=== PATIENT | male | born 1970 | race Caucasian/White ===

== ENCOUNTER → 2017-03-14 08:34 | Outpatient (CLI) | payer BC ==
[2017-03-14 09:02] LABS: BASOPHILS 0.3 % (0-2); EOSINOPHILS 5.2 % (0-7); HEMATOCRIT 42.8 % (42.0-54.0); HEMOGLOBIN 14.3 g/dL (13.5-17.5); IMMATURE GRANULOCYTES 0.3 % (0-5); LYMPHOCYTES 16.8 % (15-50); MCH 30.4 pg (26.0-34.0); MCHC 33.4 g/dL (31.0-37.0); MCV 90.9 fL (80.0-100.0); MEAN PLATELET VOLUME 9.7 fL (7.4-10.4); MONOCYTES 8.1 % (2-11); NEUTROPHILS 69.3 % (40-80); PLATELET COUNT 238 10x3/uL (130-400); RBC 4.71 10x6/uL (4.20-6.10); RDW 13.2 % (11.5-14.5); WBC 6.9 10x3/uL (4.8-10.8)
[2017-03-14 09:25] LABS: ALBUMIN 3.6 g/dL (3.4-5.0); ANION GAP 11.1 mmol/L (8-16); BILIRUBIN - TOTAL 0.51 mg/dL (0.2-1.3); CALCIUM 9.3 mg/dL (8.5-10.1); CARBON DIOXIDE 28.5 mmol/L (21.0-32.0); CHOL - HDL RATIO 7.2 ratio (2.3-4.9); CREATININE - SERUM 1.3 mg/dL (0.6-1.3); LDL-HDL RATIO 4.3 ratio (1.5-3.5); POTASSIUM - SERUM 3.6 mmol/L (3.5-5.1); PROTEIN - SERUM 7.2 g/dL (6.4-8.2); THYROID STIMULATING HORMONE 1.04 uIU/mL (0.36-3.74)
== END | disposition home or self-care (01) ==
LOC: D.LAB 08:34
PROVIDERS: Family Medicine
DX: Z00.01 Encounter for general adult medical examination with abnormal findings (principal); E78.5 Hyperlipidemia, unspecified; I10 Essential (primary) hypertension

== ENCOUNTER 2018-12-04 02:49 | Emergency (ER) | payer BC ==
[~2018-12-04] VITALS: Ht 182.9 cm; Wt 115.9 kg
[2018-12-04 02:53] VITALS: Ht 182.9 cm; Wt 115.9 kg
[2018-12-04] MEDS ORDERED: HYDROCODON-ACE1 EAC7 PO (02:55)
[2018-12-04] MEDS ORDERED: [UNRECOGNIZED DRUG - OTHER] (02:56)
[2018-12-04] MEDS ORDERED: ZOLOFT25 MG PO (02:56)
[2018-12-04] MEDS ORDERED: COZAAR100 MG PO (02:57)
[2018-12-04] MEDS ORDERED: NORVASC10 MG PO (02:57)
[2018-12-04] MEDS ORDERED: HYDROCHLOROTHIA25 MG PO (02:57)
[2018-12-04] MEDS ORDERED: LOMOTIL 2.5-0.1 EAC1 PO (03:11)
[2018-12-04] MEDS ORDERED: ZOFRAN ODT4 MG/UDTAB PO (03:11)
[2018-12-04 06:01] VITALS: BP 130/80
== END 2018-12-04 06:00 | disposition home or self-care (01) ==
LOC: D.ER 02:49
DX: R11.10 Vomiting, unspecified (principal); R19.7 Diarrhea, unspecified; R10.9 Unspecified abdominal pain

== ENCOUNTER 2020-01-27 12:50 | Inpatient (IN) | payer BC ==
[~2020-01-27] VITALS: Ht 182.9 cm; Wt 111.1 kg
[~2020-01-27 12:50] MED LIST: COZAAR100 MG PO; HYDROCHLOROTHIA25 MG PO; HYDROCODON-ACE1 EAC7 PO; LOMOTIL 2.5-0.1 EAC1 PO; NORVASC10 MG PO; ZOFRAN ODT4 MG/UDTAB PO; ZOLOFT25 MG PO; [UNRECOGNIZED DRUG - OTHER]
[2020-01-27] MEDS ORDERED: IRON (13:13)
[2020-01-27] MEDS ORDERED: FISHOIL (13:13)
[2020-01-27] MEDS ORDERED: MULTIVITAMIN (13:13)
[2020-01-27 13:43] LABS: BASOPHILS 0.2 % (0-2); EOSINOPHILS 0.2 % (0-7); HEMATOCRIT 40.1 % (42.0-54.0); HEMOGLOBIN 13.2 g/dL (13.5-17.5); IMMATURE GRANULOCYTES 0.2 % (0-5); LYMPHOCYTES 22.9 % (15-50); MCH 29.7 pg (26.0-34.0); MCHC 32.9 g/dL (31.0-37.0); MCV 90.1 fL (80.0-100.0); MEAN PLATELET VOLUME 9.3 fL (7.4-10.4); MONOCYTES 6.8 % (2-11); NEUTROPHILS 69.7 % (40-80); PLATELET COUNT 185 10x3/uL (130-400); RBC 4.45 10x6/uL (4.20-6.10); RDW 13.6 % (11.5-14.5); WBC 4.8 10x3/uL (4.8-10.8)
[2020-01-27 13:58] LABS: CALC OSMOLALITY 287 mosm/kg (275-300); CALCIUM 8.6 mg/dL (8.5-10.1); CARBON DIOXIDE 23.7 mmol/L (21.0-32.0); CHLORIDE - SERUM 108 mmol/L (98-107); CREATININE - SERUM 1.2 mg/dL (0.6-1.3); GLUCOSE 89 mg/dL (74-106); SODIUM 144 mmol/L (136-145); UREA NITROGEN 18 mg/dL (7-18); eGFR NON AFRICAN AMERICAN 67 mL/min (90-120)
[2020-01-27 14:07] LABS: APTT 30.4 SECONDS (22.8-39.4); INR 0.97 (0.85-1.17); PROTIME 12.8 SECONDS (11.6-15.0)
[2020-01-27 14:11] LABS: ALBUMIN 3.2 g/dL (3.4-5.0); ALKALINE PHOSPHATASE 45 U/L (30-120); ALT (SGPT) 54 U/L (10-68); BILIRUBIN - TOTAL 0.24 mg/dL (0.2-1.3); CREATINE KINASE 165 UL (21-232); PRO BNP 414 pg/mL (0-125); PROTEIN - SERUM 6.9 g/dL (6.4-8.2); TROPONIN-I 0.026 ng/mL (0.000-0.060)
[2020-01-27 15:00] VITALS: BP 119/73
[2020-01-27 16:00] VITALS: BP 126/80
[2020-01-27 17:00] VITALS: BP 146/87
[2020-01-27 18:49] VITALS: BP 131/77
--- NOTE | 2020-01-27 18:54 | NUR ---
SHA STOP TIME 1851
--- NOTE | 2020-01-27 19:05 | NUR ---
REPORT TO ANA DE LUNA
--- NOTE | 2020-01-27 19:05 | NUR ---
REPORT TO ANA DE LUNA
--- NOTE | 2020-01-27 20:05 | NUR ---
TEMP 99.5 ORALLY BP 142/81 RR 22 HR 79 O2 95% ROOM AIR 248LBS 6'O"
--- NOTE | 2020-01-27 20:31 | NUR ---
RECEIVED PATIENT TO ROOM 2129 VIA STRETCHER. PATIENT IS AAOX4, UP AD STELLA. NO S/S OF DISTRESS OBSERVED, DYSPNEA ON EXERTION ON ROOM AIR. VITALS CHARTED IN PREVIOUS NURSES NOTE. COVID PRECAUTIONS INITIATED. QUICK START, MED REC, ADULT HX, SRS, FPOC COMPLETED. PIV TO LT HAND INFUSING AZITHROMYCIN PER ORDERS. PATIENT DENIES NEEDS AT THIS TIME. CL IN REACH, BED LOCKED AND LOWERED. WILL CTM.
[2020-01-28 05:01] VITALS: BP 137/81
[2020-01-28 05:33] LABS: BASOPHILS 0 % (0-2); EOSINOPHILS 0 % (0-7); HEMATOCRIT 38.7 % (42.0-54.0); HEMOGLOBIN 12.7 g/dL (13.5-17.5); IMMATURE GRANULOCYTES 0.5 % (0-5); LYMPHOCYTES 15.8 % (15-50); MCH 29.3 pg (26.0-34.0); MCHC 32.8 g/dL (31.0-37.0); MCV 89.4 fL (80.0-100.0); MEAN PLATELET VOLUME 9.6 fL (7.4-10.4); MONOCYTES 4.7 % (2-11); PLATELET COUNT 198 10x3/uL (130-400); RBC 4.33 10x6/uL (4.20-6.10); RDW 13.4 % (11.5-14.5)
[2020-01-28 06:03] LABS: APTT 29.6 SECONDS (22.8-39.4); INR 0.95 (0.85-1.17); PROTIME 12.7 SECONDS (11.6-15.0)
[2020-01-28 06:11] LABS: ANION GAP 16.4 mmol/L (8-16); BILIRUBIN - TOTAL 0.29 mg/dL (0.2-1.3); C-REACTIVE PROTEIN 5.5 mg/dL (0.0-0.9); CALCIUM 8.6 mg/dL (8.5-10.1); CARBON DIOXIDE 22.2 mmol/L (21.0-32.0); CREATININE - SERUM 1.1 mg/dL (0.6-1.3); PHOSPHOROUS 2.9 mg/dL (2.5-4.9); PROTEIN - SERUM 6.6 g/dL (6.4-8.2)
[2020-01-28 06:12] LABS: POTASSIUM - SERUM 3.6 mmol/L (3.5-5.1)
[2020-01-28 06:53] LABS: ERYTHROCYTE SEDIMENTATION RATE 36 mm/hr (0-20)
[2020-01-28 08:26] VITALS: BP 147/89
[2020-01-28 11:59] VITALS: BP 137/70
[2020-01-28 14:20] VITALS: Ht 182.9 cm; Wt 111.1 kg
[2020-01-28 16:08] LABS: BILIRUBIN NEGATIVE (NEGATIVE); KETONE NEGATIVE (NEGATIVE); NITRITE NEGATIVE (NEGATIVE); UROBILINOGEN NORMAL mg/dL (< 2)
[2020-01-28 20:16] VITALS: BP 118/70
[2020-01-29 00:47] VITALS: BP 116/66
[2020-01-29 04:34] VITALS: BP 125/72
[2020-01-29 05:24] LABS: BASOPHILS 0 % (0-2); EOSINOPHILS 0.4 % (0-7); HEMATOCRIT 37.7 % (42.0-54.0); HEMOGLOBIN 12.4 g/dL (13.5-17.5); IMMATURE GRANULOCYTES 0.6 % (0-5); LYMPHOCYTES 27.6 % (15-50); MCH 29.2 pg (26.0-34.0); MCHC 32.9 g/dL (31.0-37.0); MCV 88.9 fL (80.0-100.0); MEAN PLATELET VOLUME 9.6 fL (7.4-10.4); MONOCYTES 6.5 % (2-11); NEUTROPHILS 64.9 % (40-80); PLATELET COUNT 233 10x3/uL (130-400); RBC 4.24 10x6/uL (4.20-6.10); RDW 13.3 % (11.5-14.5)
[2020-01-29 05:25] LABS: WBC 5.3 10x3/uL (4.8-10.8)
[2020-01-29 05:36] LABS: ANION GAP 14.7 mmol/L (8-16); CALCIUM 8.4 mg/dL (8.5-10.1); CARBON DIOXIDE 24.3 mmol/L (21.0-32.0); CREATININE - SERUM 1.1 mg/dL (0.6-1.3); MAGNESIUM - SERUM 2.1 mg/dL (1.8-2.4)
[2020-01-29 05:37] LABS: PHOSPHOROUS 3.9 mg/dL (2.5-4.9)
--- NOTE | 2020-01-29 08:19 | NUR ---
AM MEDS GIVEN AT THIS TIME. PT A/O X4, RESP EVEN BUT A LITTLE LABORED DUE TO PT JUST COMING BACK TO BED FROM BATHROOM. ENCOUREAGED PT TO WEAR O2 AND TAKE IN DEEP BREATHS. LT HAND IV INFUSING 1/2NS AT 50. PT DENIES ANY NEEDS AT THIS TIME. CALL LIGHT IN REACH, NAD NOTED, WILL CONTINUE PLAN OF CARE.
[2020-01-29 10:02] VITALS: BP 120/82
[2020-01-29] MEDS ORDERED: DECADRON4 MG PO (10:20)
[2020-01-29] MEDS ORDERED: OMNICEF300 MG PO (10:20)
[2020-01-29] MEDS ORDERED: AZITHROMYCIN500 MG PO (10:21)
--- NOTE | 2020-01-29 12:20 | MORECARE ---
CASE MANAGEMENT DISCHARGE SUMMARY PATIENT: CON GUNN UNIT: [id number] ADM DATE: 01/27/20 AGE: 50 : 66 SEX: M ROOM/BED: D.2129 AUTHOR: LISA AC PHYSICIAN: REFERRING PHYSICIAN: MEDINA LAO MD DATE OF SERVICE: 01/29/20 Discharge Plan Patient Name: CON GUNN [facility] [facility] 1970 Planned Disposition: Home Anticipated Discharge Date: 01/29/20 Discharge Date: Expected LOS: 2 Initial Reviewer: [email or web address] Initial Review Date: 01/29/2020 Generated: 01/29/20 1:19 pm DCPIA - Discharge Planning Initial Assessment Updated by [email or web address]: Ilir Gregory on 01/29/20 12:18 pm * Is the patient Alert and Oriented? Yes * How many steps to enter\exit or inside your home? 0/0 * PCP Dr. Yuki MD * Pharmacy [facility] on [facility] * Preadmission Environment Home with Family * ADLs Independent * Equipment None * List name and contact numbers for known caregivers / representatives who currently or will assist patient after discharge: Brandy Gunn (Spouse) - [phone] * Verbal permission to speak to the caregivers and representatives has been obtained from the patient. Yes * Community resources currently utilized None * Please name any agencies selected above. n/a * Additional services required to return to the preadmission environment? No * Can the patient safely return to the preadmission environment? Yes * Has this patient been hospitalized within the prior 30 days at any hospital? No Patient Name: CON GUNN Page [id number] at 1220 All edits/amendments must be made on the electronic document DICTATION DATE: 01/29/20 1219 CHARGE ENTRY CLERK: BLANKA 01/29/20 1219 RPT#: [id number] DC DATE: STATUS: ADM IN [facility] [address] [place] [address] END OF REPORT
--- NOTE | 2020-01-29 12:28 | MORECARE ---
CASE MANAGEMENT DISCHARGE SUMMARY PATIENT: CON GUNN UNIT: [id number] ADM DATE: 01/27/20 AGE: 50 : 66 SEX: M ROOM/BED: D.1243 AUTHOR: YASHIRADOC PHYSICIAN: REFERRING PHYSICIAN: MEDINA LAO MD DATE OF SERVICE: 01/29/20 Discharge Plan Patient Name: CON GUNN Facility: [facility]:[place] : 1970 Planned Disposition: Home Anticipated Discharge Date: 01/29/20 Discharge Date: Expected LOS: 2 Initial Reviewer: [email or web address] Initial Review Date: 01/29/2020 Generated: 01/29/20 1:27 pm Comments DCP- Discharge Planning Updated by [email or web address]: Ilir Gregory on 01/29/20 11:[address] Patient Name: CON GUNN Admission Status: ER Accout number: [id number] Admission Date: 01-27-2020 : 1970 Admission Diagnosis:PNEUMONIA, UNSPECIFIED ORGANISM Attending: LOAN Current LOS: 2 Anticipated DC Date: 01-29-2020 Planned Disposition: Home Primary Insurance: [employer] Discharge Planning Comments: CM met with patient to complete initial dc planning assessment. CM educated patient on the CM role and verbal consent given by patient to complete assessment. CM verified patient's address, phone number, and emergency contact phone numbers. Patient lives at home with spouse, Brandy Gunn. At discharge patient plans to return home and feels this is a safe discharge. CM discussed availability of home health, rehab services, and medical equipment. Patient declines HH services at this time as well as DME, SNF, and IPR. No other needs identified at this time. Transportation provider at discharge will be his , Brandy Gunn [phone]. CM will continue to follow and will assist as needed with dc plans/needs. Marine Engine Mechanic: Ilir Gregory DCPIA - Discharge Planning Initial Assessment Updated by [email or web address]: Ilir Gregory on 01/29/20 12:18 pm * Is the patient Alert and Oriented? Yes * How many steps to enter\exit or inside your home? 0/0 * PCP Dr. Yuki MD * Pharmacy [facility] on [facility] * Preadmission Environment Home with Family * ADLs Independent * Equipment None * List name and contact numbers for known caregivers / representatives who currently or will assist patient after discharge: Brandy Gunn (Spouse) - [phone] * Verbal permission to speak to the caregivers and representatives has been obtained from the patient. Yes * Community resources currently utilized None * Please name any agencies selected above. n/a * Additional services required to return to the preadmission environment? No * Can the patient safely return to the preadmission environment? Yes * Has this patient been hospitalized within the prior 30 days at any hospital? No Last DP export: 01/29/20 11:20 a Patient Name: CON GUNN Page [id number] at 1228 All edits/amendments must be made on the electronic document DICTATION DATE: 01/29/207 EXPORT COORDINATOR: BLANKA 01/29/207 RPT#: [id number] DC DATE: STATUS: ADM IN [facility] [address] [place] [address] END OF REPORT
--- NOTE | 2020-01-29 14:55 | NUR ---
PT RESTING COMFORTABLY IN BED, DENIES ANY NEEDS AT THIS TIME. CALL LIGHT IN REACH,NAD NOTED, WILL CONTINUE TO MONITOR.
[2020-01-29 17:06] VITALS: BP 133/77
[2020-01-29 20:00] VITALS: BP 137/74
--- NOTE | 2020-01-29 20:17 | NUR ---
ASSESSMENT COMPLETED AT 2004 HRS. VSS. ALERT AND ORIENTED TO PERSON, PLACE AND TIME. BRANCH. IV TO L HAND WITH 1/2NS AT 50CC/HR. IV PATENT. LUNGS DIMINSIHED IN BASES BILAT. PALPABLE PERIPHERAL PULSES. DENIES ANY DISCOMFORT. CALL LIGHT WITHIN REACH.
--- NOTE | 2020-01-29 21:54 | NUR ---
PM MEDS GIVEN. PT DENIED ANY DISCOMFORT. CALL LIGHT WITHIN REACH.
--- NOTE | 2020-01-29 23:45 | NUR ---
VSS. PT RESTING WITH EYES CLOSED. RESP EVEN AND REGULAR. CALL LIGHT WITHIN REACH.
[2020-01-30 00:02] VITALS: BP 137/82
--- NOTE | 2020-01-30 02:12 | NUR ---
PT UP TO BR. DENIES ANY SOB.
[2020-01-30 04:20] VITALS: BP 127/78
--- NOTE | 2020-01-30 04:39 | NUR ---
PT RESTING WITH EYES CLOSED. RESP EVEN AND REGULAR. CALL LIGHT WITHIN REACH.
[2020-01-30 05:01] LABS: BASOPHILS 0.1 % (0-2); EOSINOPHILS 0.1 % (0-7); HEMATOCRIT 37.7 % (42.0-54.0); HEMOGLOBIN 12.5 g/dL (13.5-17.5); LYMPHOCYTES 21.8 % (15-50); MCH 29.6 pg (26.0-34.0); MCHC 33.2 g/dL (31.0-37.0); MCV 89.1 fL (80.0-100.0); MEAN PLATELET VOLUME 9.3 fL (7.4-10.4); MONOCYTES 8.5 % (2-11); NEUTROPHILS 67.5 % (40-80); PLATELET COUNT 243 10x3/uL (130-400); RBC 4.23 10x6/uL (4.20-6.10); RDW 13.3 % (11.5-14.5)
[2020-01-30 05:07] LABS: WBC 7.1 10x3/uL (4.8-10.8)
[2020-01-30 05:28] LABS: ANION GAP 12.6 mmol/L (8-16); CALCIUM 8.5 mg/dL (8.5-10.1); CARBON DIOXIDE 25.1 mmol/L (21.0-32.0); CREATININE - SERUM 1.1 mg/dL (0.6-1.3); PHOSPHOROUS 3.8 mg/dL (2.5-4.9); POTASSIUM - SERUM 3.7 mmol/L (3.5-5.1)
--- NOTE | 2020-01-30 06:28 | NUR ---
VSS THROUGHOUT NIGHT. PT DENIED ANY DISCOMFORT. NEEDS MET; WILL CONTINUE TO MONITOR.
[2020-01-30 08:25] VITALS: BP 139/90
--- NOTE | 2020-01-30 08:35 | NUR ---
AM MEDS GIVEN AT THIS TIME. PT RESTING COMFORTABLY IN BED. A/O X4, PT A LITTLE SOB WITH EXERTION. ENCOURAGED PT TO TAKE IN DEEP BREATHS. LT HAND IV PATENT AND INFUSING 1/2NS AT 50. PT DENIES ANY NEEDS AT THIS TIME. CALL LIGHT IN REACH, NAD NOTED, WILL CONTINUE TO MONITOR.
[2020-01-30 12:22] VITALS: BP 137/77
--- NOTE | 2020-01-30 12:34 | NUR ---
LUNCH TRAY TAKEN IN TO PT, PT UP AD STELLA IN ROOM, NO SOB NOTED. PT DENIES ANY NEEDS AT THIS TIME. CALL LIGHT IN REACH.
[2020-01-30 20:00] VITALS: BP 118/63
--- NOTE | 2020-01-30 20:00 | NUR ---
INITIAL ROUNDS AND ASSESSMENT COMPLETED. PT RESTING IN BED. ALERT/ORIENTED AND ADLIB IN ROOM. NONLABORED RESPIRATIONS ON ROOM AIR. VERY PLEASANT AND HOPEFUL FOR D/C SOON. IVF 1/2NS @ 50ML/HR INFUSING TO LEFT HAND. PT ON DROPLET ISOLATION FOR COVID. CPOC.
[2020-01-31 04:00] VITALS: BP 146/65
[2020-01-31 05:30] LABS: BASOPHILS 0.1 % (0-2); EOSINOPHILS 0.4 % (0-7); HEMATOCRIT 39.1 % (42.0-54.0); HEMOGLOBIN 12.8 g/dL (13.5-17.5); IMMATURE GRANULOCYTES 3.9 % (0-5); LYMPHOCYTES 21.7 % (15-50); MCHC 32.7 g/dL (31.0-37.0); MCV 88.5 fL (80.0-100.0); MEAN PLATELET VOLUME 9.5 fL (7.4-10.4); MONOCYTES 7.9 % (2-11); RBC 4.42 10x6/uL (4.20-6.10); RDW 13.1 % (11.5-14.5); WBC 7.7 10x3/uL (4.8-10.8)
[2020-01-31 05:54] LABS: ANION GAP 13.2 mmol/L (8-16); CALCIUM 8.5 mg/dL (8.5-10.1); CARBON DIOXIDE 23.3 mmol/L (21.0-32.0); CREATININE - SERUM 1.1 mg/dL (0.6-1.3); PHOSPHOROUS 4.2 mg/dL (2.5-4.9); PLATELET COUNT 296 10x3/uL (130-400); POTASSIUM - SERUM 3.5 mmol/L (3.5-5.1)
--- NOTE | 2020-01-31 07:20 | NUR ---
RECIEVE REPORT. ALERT AND ORIENTED X4. RESTING IN BED. DENIES ANY NEEDS. NO SIGNS OF DISTRESS. CONTINUE PLAN OF CARE AND SAFETY PRECAUTIONS.
[2020-01-31 08:39] VITALS: BP 119/70
[2020-01-31 11:42] VITALS: BP 139/77
--- NOTE | 2020-01-31 13:45 | NUR ---
Nutrition Follow-up: Pt in droplet isolation; covid-19+. Chart reviewed. Good PO intake reported. Diet: Regular PO intake: 100% x 6 meals Wt: 245# (01/27) Labs noted: Glu 114 Meds noted: Florajen, Zinc Sulfate, vitamin D, vitamin C, Protonix, 1/2NS @ 50, electrolyte protocol -Monitor wt; noted daily wts ordered. -RD following.
[2020-01-31 15:26] VITALS: BP 134/79
[2020-01-31 20:00] VITALS: BP 130/81
[2020-02-01 04:00] VITALS: BP 134/85
[2020-02-01 04:51] LABS: BASOPHILS 0.2 % (0-2); EOSINOPHILS 0.5 % (0-7); HEMATOCRIT 37.5 % (42.0-54.0); HEMOGLOBIN 12.6 g/dL (13.5-17.5); IMMATURE GRANULOCYTES 2.9 % (0-5); LYMPHOCYTES 18.5 % (15-50); MCH 29.5 pg (26.0-34.0); MCHC 33.6 g/dL (31.0-37.0); MCV 87.8 fL (80.0-100.0); MEAN PLATELET VOLUME 9.1 fL (7.4-10.4); MONOCYTES 8.6 % (2-11); NEUTROPHILS 69.3 % (40-80); PLATELET COUNT 281 10x3/uL (130-400); RBC 4.27 10x6/uL (4.20-6.10); RDW 13.2 % (11.5-14.5); WBC 8.3 10x3/uL (4.8-10.8)
[2020-02-01 05:00] LABS: ANION GAP 14.3 mmol/L (8-16); CALCIUM 8.7 mg/dL (8.5-10.1); CARBON DIOXIDE 21.5 mmol/L (21.0-32.0); CREATININE - SERUM 1.1 mg/dL (0.6-1.3); MAGNESIUM - SERUM 1.8 mg/dL (1.8-2.4); PHOSPHOROUS 4.6 mg/dL (2.5-4.9); POTASSIUM - SERUM 3.8 mmol/L (3.5-5.1)
--- NOTE | 2020-02-01 07:15 | NUR ---
RECIEVE REPORT. ALERT AND ORIENTED X4. SITTING UP IN BED. DENIES ANY NEEDS. EXPRESSES WANTING TO GO HOME. CONTINUE PLAN OF CARE AND SAFETY PRECAUTIONS.
[2020-02-01 08:47] VITALS: BP 125/88
[2020-02-01 12:25] VITALS: BP 134/73
[2020-02-01] MEDS ORDERED: AZITHROMYCIN500 MG PO (12:35)
[2020-02-01] MEDS ORDERED: OMNICEF300 MG PO (12:35)
[2020-02-01] MEDS ORDERED: DECADRON4 MG PO (12:35)
[2020-02-01] MEDS ORDERED: FEXOFENADINE HC60 MG PO (12:35)
== END 2020-02-01 19:45 | disposition home or self-care (01) | DRG 177 ==
LOC: D.ER 12:50 → D.M2 16:56
PROVIDERS: Family Medicine; Internal Medicine Pulmonary Disease; ADMIT Family Medicine; ATTEND Family Medicine
DX: U07.1 COVID-19 (principal); J96.01 Acute respiratory failure with hypoxia; J12.89 Other viral pneumonia; E66.9 Obesity, unspecified; Z68.33 Body mass index [BMI] 33.0-33.9, adult; F41.8 Other specified anxiety disorders; E87.6 Hypokalemia; I10 Essential (primary) hypertension; G89.29 Other chronic pain; M54.9 Dorsalgia, unspecified